=== PATIENT | female | born 1985 | race Caucasian/White ===

== ENCOUNTER 2018-02-15 20:58 | Observation (INO) | payer MEDICAID ==
[~2018-02-15] VITALS: Ht 147.3 cm; Wt 71.2 kg
[2018-02-15] MEDS ORDERED: ACETAMINOPHEN 500MG TABLET PO SCH (22:50)
[2018-02-15] MEDS ORDERED: PNV1TABL76 MT (22:53)
== END 2018-02-16 00:35 | disposition home or self-care (01) ==
LOC: L&D 20:58
PROVIDERS: ADMIT Specialist; ATTEND Specialist
DX: O62.9 Abnormality of forces of labor, unspecified (principal); Z3A.39 39 weeks gestation of pregnancy
CPT/HCPCS: 99281; G0378

== ENCOUNTER 2018-02-16 22:25 | Inpatient (IN) | payer MEDICAID ==
[~2018-02-16] VITALS: Ht 147.3 cm; Wt 71.2 kg
[~2018-02-16 22:25] MED LIST: PNV1TABL76 MT
[2018-02-17] MEDS ORDERED: DEXT 5%/LR + PITOCIN 20UNITS/L 1,000 ML IV SCH (01:32)
[2018-02-17] MEDS ORDERED: METHYLERGONOVINE MALEATE 0.2 MG/ML IM PRN (01:45)
[2018-02-17] MEDS ORDERED: LIDOCAINE HCL/PF 1% 10 MG/ML 5ML VIAL IJ SCH (01:45)
[2018-02-17] MEDS ORDERED: PENICILLIN G POTASSIUM 5 MMU in DEXT 5% WATER 100 ML IV SCH (01:45)
[2018-02-17] MEDS ORDERED: NALOXONE HCL 0.4 MG/ML 1ML VIAL IM PRN (01:45)
[2018-02-17] MEDS ORDERED: CARBOPROST TROMETHAMINE 250 MCG/ML AMPUL IM PRN (01:45)
[2018-02-17 02:42] LABS: BASOPHILS % 0.2 % (0.0-2.0); EOSINOPHILS % 0.4 % (0.0-5.0); HEMATOCRIT. 38.1 % (36.0-48.0); HEMOGLOBIN. 12.8 g/dL (12.0-16.0); LYMPHOCYTES % 12.8 % (20.0-50.0); MEAN CORPUSCULAR HEMOGLOBIN 31.5 pg (28.0-32.0); MEAN CORPUSCULAR VOLUME 93.9 fL (81.0-99.0); MEAN PLATELET VOLUME 10.8 fl (7.4-10.4); MONOCYTES % 5.7 % (2.0-8.0); NEUTROPHILS % 80.9 % (40.0-76.0); PLATELET 163 x1000/uL (130-400); RED BLOOD CELL COUNT 4.06 mill/uL (4.2-5.4); RED CELL DISTRIBUTION WIDTH 14.2 % (11.6-14.6)
[2018-02-17] MEDS: BUTORPHANOL TARTRATE 2 MG/ML VIAL IV PRN ×2 (02:48→07:08)
[2018-02-17 02:50] LABS: INR 0.9; PARTIAL THROMBOPLASTIN TIME 27.3 sec (23.4-31.0); PROTHROMBIN TIME 9.5 sec (9.4-11.6)
[2018-02-17 04:27] LABS: CLARITY URINE CLEAR (CLEAR); COLOR URINE YELLOW (YELLOW); KETONES URINE NEGATIVE (NEGATIVE); LEUKOCYTE ESTERASE URINE 3+ (NEGATIVE); NITRITE URINE NEGATIVE (NEGATIVE); OCCULT BLOOD URINE 2+ (NEGATIVE); PH URINE 6.5 (4.5-8.0); PROTEIN URINE NEGATIVE (NEGATIVE); SPECIFIC GRAVITY URINE 1.008 (1.005-1.030); UROBILINOGEN URINE 0.2 E.U./dL (0.2-1.0)
[2018-02-17 04:37] LABS: *AMPHETAMINES SCREEN URINE NEGATIVE (NEGATIVE); *BARBITURATES SCREEN URINE NEGATIVE (NEGATIVE); *BENZODIAZEPINES SCREEN URINE NEGATIVE (NEGATIVE)
[2018-02-17 04:38] LABS: *COCAINE SCREEN URINE NEGATIVE (NEGATIVE); CANNABINOID URINE SCREEN NEGATIVE (NEGATIVE); METHADONE URINE SCREEN NEGATIVE (NEGATIVE); OPIATES URINE SCREEN NEGATIVE (NEGATIVE); PHENCYCLIDINE URINE SCREEN NEGATIVE (NEGATIVE)
[2018-02-17] MEDS: LACTATED RINGERS 1,000 ML IV SCH ×4 (07:02→18:28)
[2018-02-17] MEDS: PENICILLIN G POTASSIUM 2.5 MMU in DEXTROSE 5% WATER 50 ML IV SCH ×2 (09:04→13:05)
[2018-02-17 11:16] LABS: RUBELLA IGG 74.3 IU/mL (4.99-10)
[2018-02-17 11:17] LABS: HEPATITIS B SURFACE ANTIGEN NEGATIVE
[2018-02-17] MEDS ORDERED: FENTANYL CITRATE/PF 50MCG/ML 2ML VIAL ONE ×2 (13:44→23:11)
[2018-02-17] MEDS ORDERED: BUPIVACAINE HCL/PF 0.25% (2.5MG/ML) 10ML ONE (13:44)
[2018-02-17] MEDS ORDERED: BUPIVACAINE HCL/NS/PF EPIDURAL 100 ML EP ONE ×2 (13:44→23:11)
[2018-02-17] MEDS ORDERED: ONDANSETRON HCL 4MG/2ML VIAL IV PRN (15:15)
[2018-02-17] MEDS ORDERED: DIPHENHYDRAMINE 50MG/ML VIAL IV PRN (15:15)
[2018-02-17] MEDS ORDERED: BUPIVACAINE HCL/NS/PF EPIDURAL 100 ML EP NR (15:15)
[2018-02-18] MEDS: LACTATED RINGERS 1,000 ML IV SCH (00:54)
[2018-02-18] MEDS ORDERED: LIDOCAINE HCL/PF 1% 10 MG/ML 5ML VIAL IJ NR (05:45)
[2018-02-18] MEDS ORDERED: DEXT 5%/LR + PITOCIN 20UNITS/L 1,000 ML IV SCH (06:24)
[2018-02-18] MEDS ORDERED: RHO(D) IMMUNE GLOBULIN 300 MCG/SYR IM PRN (06:30)
[2018-02-18] MEDS ORDERED: LANOLIN OINT 0.25 GM TUBE TOP PRN (06:30)
[2018-02-18] MEDS ORDERED: IBUPROFEN 400MG TABLET PO PRN (06:30)
[2018-02-18] MEDS ORDERED: METHYLERGONOVINE MALEATE 0.2 MG/ML IM PRN (06:30)
[2018-02-18] MEDS: IBUPROFEN 800MG TABLET PO PRN ×2 (07:00→21:16)
[2018-02-18 08:00] VITALS: BP 103/66
[2018-02-18] MEDS: PRENATAL VIT/FE FUMARATE/FA TABLET PO SCH (08:57)
[2018-02-18 08:59] VITALS: BP 106/63
[2018-02-18 16:14] VITALS: BP 84/46
[2018-02-18 18:55] VITALS: BP 100/64
[2018-02-18 21:00] VITALS: BP 94/56
[2018-02-19 00:10] VITALS: BP 96/60
[2018-02-19 06:27] LABS: BASOPHILS % 0.2 % (0.0-2.0); EOSINOPHILS % 1.8 % (0.0-5.0); HEMATOCRIT. 32.7 % (36.0-48.0); HEMOGLOBIN. 11.1 g/dL (12.0-16.0); LYMPHOCYTES % 20.2 % (20.0-50.0); MEAN CORPUSCULAR HEMOGLOBIN 32.2 pg (28.0-32.0); MEAN CORPUSCULAR VOLUME 95.1 fL (81.0-99.0); MEAN PLATELET VOLUME 10.2 fl (7.4-10.4); MONOCYTES % 5.1 % (2.0-8.0); NEUTROPHILS % 72.7 % (40.0-76.0); PLATELET 155 x1000/uL (130-400); RED BLOOD CELL COUNT 3.44 mill/uL (4.2-5.4); RED CELL DISTRIBUTION WIDTH 14.4 % (11.6-14.6)
[2018-02-19 07:45] VITALS: BP 90/58
[2018-02-19] MEDS: PRENATAL VIT/FE FUMARATE/FA TABLET PO SCH (09:18)
[2018-02-19] MEDS: IBUPROFEN 800MG TABLET PO PRN (09:24)
[2018-02-19 16:05] VITALS: BP 109/68
[2018-02-19 20:00] VITALS: BP 94/57
[2018-02-20 00:05] VITALS: BP 96/59
[2018-02-20] MEDS: IBUPROFEN 800MG TABLET PO PRN ×2 (06:14→16:28)
[2018-02-20 07:54] VITALS: BP 109/61
[2018-02-20] MEDS: PRENATAL VIT/FE FUMARATE/FA TABLET PO SCH (08:38)
[2018-02-20] MEDS ORDERED: TETANUS, DIPHTHERIA, PERTUSSIS VAC/PF 0.5ML (>7YR OLD) IM ONE (09:00)
[2018-02-20 16:00] VITALS: BP 103/57
== END 2018-02-20 17:30 | disposition home or self-care (01) | DRG 560 ==
LOC: L&D 22:25 → OBSVTOIN 22:25 → 7EST PP/OB 02-18 08:40
PROVIDERS: ADMIT Obstetrics & Gynecology; ATTEND Obstetrics & Gynecology
PROC: 0W8NXZZ Division of Female Perineum, External Approach (ICD-10-PCS; 2018-02-18)
PROC: 0HQ9XZZ Repair Perineum Skin, External Approach (ICD-10-PCS; 2018-02-18)
PROC: 10E0XZZ Delivery of Products of Conception, External Approach (ICD-10-PCS; principal; 2018-02-18 05:45)
DX: O77.0 Labor and delivery complicated by meconium in amniotic fluid (principal); O76 Abnormality in fetal heart rate and rhythm complicating labor and delivery; O70.9 Perineal laceration during delivery, unspecified; Z37.0 Single live birth; Z3A.39 39 weeks gestation of pregnancy; Z79.899 Other long term (current) drug therapy
CPT/HCPCS: 36415; 80305; 81003; 85025; 85610; 85730; 86592; 86703; 86762; 86850; 86900; 87086; 87340; 90715; 99281; G0378; J0595; J2405; J2540; J2590; J3010; J3490; J7060; J7120; A4315

== ENCOUNTER 2018-06-13 05:24 | Day surgery (SDC) | payer MEDICAID ==
[~2018-06-13] VITALS: Ht 149.9 cm; Wt 64.4 kg
[2018-06-13 06:09] LABS: CHLORIDE 106 mEq/L (98-107)
[2018-06-13 06:18] LABS: BASOPHILS % 0.8 % (0.0-2.0); HEMATOCRIT. 38.2 % (36.0-48.0); HEMOGLOBIN. 13.1 g/dL (12.0-16.0); LYMPHOCYTES % 34.5 % (20.0-50.0); MEAN CORPUSCULAR HEMOGLOBIN 32.1 pg (28.0-32.0); MEAN CORPUSCULAR VOLUME 93.4 fL (81.0-99.0); MEAN PLATELET VOLUME 8.7 fl (7.4-10.4); MONOCYTES % 5.5 % (2.0-8.0); NEUTROPHILS % 54.2 % (40.0-76.0); PLATELET 218 x1000/uL (130-400); RED BLOOD CELL COUNT 4.09 mill/uL (4.2-5.4); RED CELL DISTRIBUTION WIDTH 13.3 % (11.6-14.6)
[2018-06-13 06:25] LABS: CLARITY URINE CLEAR (CLEAR); COLOR URINE YELLOW (YELLOW); KETONES URINE NEGATIVE (NEGATIVE); LEUKOCYTE ESTERASE URINE NEGATIVE (NEGATIVE); NITRITE URINE NEGATIVE (NEGATIVE); OCCULT BLOOD URINE NEGATIVE (NEGATIVE); PROTEIN URINE NEGATIVE (NEGATIVE); SPECIFIC GRAVITY URINE 1.021 (1.005-1.030); UROBILINOGEN URINE 0.2 E.U./dL (0.2-1.0)
[2018-06-13 06:30] LABS: UCG SCREEN NEGATIVE
[2018-06-13] MEDS ORDERED: LACTATED RINGERS 1,000 ML IV SCH (06:30)
[2018-06-13] MEDS ORDERED: MIDAZOLAM HCL 2 MG/2 ML VIAL ONE (07:19)
[2018-06-13] MEDS ORDERED: FENTANYL CITRATE/PF 50MCG/ML 2ML VIAL ONE (07:19)
[2018-06-13] MEDS ORDERED: PROPOFOL 200MG/20ML VIAL IV ONE (07:19)
[2018-06-13] MEDS ORDERED: ROCURONIUM BROMIDE 10MG/ML VIAL 5ML IV ONE (07:19)
[2018-06-13] MEDS ORDERED: NEOSTIGMINE METHYLSULFATE 1MG/ML 10 ML VIAL ONE (07:19)
[2018-06-13] MEDS ORDERED: SUCCINYLCHOLINE CHLORIDE 200MG/10ML VIAL IV ONE (07:20)
[2018-06-13] MEDS ORDERED: LIDOCAINE HCL/PF 1% 10 MG/ML 5ML VIAL ONE (07:20)
[2018-06-13] MEDS ORDERED: CEFAZOLIN SODIUM 1000MG/VIAL ONE (07:20)
[2018-06-13] MEDS ORDERED: METOCLOPRAMIDE HCL 10MG/2ML VIAL ONE (07:20)
[2018-06-13] MEDS ORDERED: ONDANSETRON HCL 4MG/2ML VIAL ONE (07:20)
[2018-06-13] MEDS ORDERED: PHENYLEPHRINE HCL 10 MG/ML 1ML (IV VIAL) IV ONE (07:20)
[2018-06-13] MEDS ORDERED: SODIUM CHLORIDE 0.9% 10ML VIAL ONE (07:20)
[2018-06-13] MEDS ORDERED: GLYCOPYRROLATE 0.2 MG/ML 2ML VIAL ONE (07:20)
[2018-06-13] MEDS ORDERED: BUPIVACAINE HCL 0.5% (5MG/ML) 50ML ONE (07:21)
[2018-06-13] MEDS ORDERED: SKIN ADHESIVE 0.7 GM EA TOP ONE (07:21)
[2018-06-13] MEDS ORDERED: BUPIVACAINE HCL/PF 0.5% (5MG/ML) 10ML ONE (07:49)
[2018-06-13] MEDS ORDERED: SODIUM CHLORIDE 0.9% 1,000 ML IV ONE (08:30)
[2018-06-13] MEDS ORDERED: MEPERIDINE HCL/PF 25MG/ML CPJ IV PRN ×2 (08:30)
[2018-06-13] MEDS ORDERED: ONDANSETRON HCL 4MG/2ML VIAL IV PRN (08:30)
[2018-06-13] MEDS ORDERED: HYDROCODONE/ACETAMINOPHEN 5/325MG TABLET PO PRN ×2 (09:00)
[2018-06-13] MEDS ORDERED: IBUPROFEN 600MG TABLET PO PRN (09:00)
[2018-06-13] MEDS: HYDROMORPHONE HCL/PF 2MG/ML CPJ IV PRN ×2 (09:05→09:17)
[2018-06-13 09:17] VITALS: BP 142/88
== END 2018-06-13 11:08 | disposition home or self-care (01) ==
LOC: OR 05:24
PROVIDERS: ATTEND Obstetrics & Gynecology
DX: Z30.2 Encounter for sterilization (principal); Z64.1 Problems related to multiparity; Z79.899 Other long term (current) drug therapy; Z98.890 Other specified postprocedural states; G89.29 Other chronic pain
CPT/HCPCS: 36415; 58670; 80048; 81003; 81025; 85025; 85610; 85730; A4216; C1725; J0330; J0690; J1170; J2250; J2370; J2405; J2710; J2765; J3010; J3490; J7120; J2704